=== PATIENT | female | born 1975 | race American Indian/Alaskan Native ===

== ENCOUNTER 2018-03-18 13:00 | Outpatient (CLI) | payer MEDICARE ==
--- NOTE | 2018-03-18 13:54 | Mammography Report ---
Screening mammogram: Prior reduction surgeries bilaterally. Baseline examination. Routine views demonstrates mild fibroglandular distortion throughout both breasts consistent with prior reduction surgery. A couple of lipoid cysts are identified in the right breast. There is a focal area of dense and spiculated asymmetric distortion in the lateral right breast which is most likely superior in position but not as clearly defined on the lateral view. No other significant findings are appreciated. CAD used. Impression: Postsurgical changes. The right breast asymmetry most likely secondary to scar formation. Recommendation: Right breast ultrasound to confirm the absence of a mass associated with lateral deformity. BI-RADS CATEGORY: 0 = Needs additional imaging evaluation ACR BI-RADS MAMMOGRAPHIC CODES: 0 = Needs additional imaging evaluation; 1 = Negative; 2 = Benign; 3 = Probably benign; 4 = Suspicious; 5 = Malignant; 6 = Known biopsy-proven malignancy COMMENT: 1. Dense breast tissue, i.e., adenosis, fibrocystic changes, etc., may obscure an underlying neoplasm. 2. Approximately 10% of cancers are not detected with mammography. 3. A negative mammography report should not delay biopsy if a clinically suspicious mass is present.
== END 2018-03-18 13:01 | disposition home or self-care (01) ==
LOC: MAMMO 13:00
PROVIDERS: ATTEND Obstetrics & Gynecology
DX: Z12.31 Encounter for screening mammogram for malignant neoplasm of breast (principal)
CPT/HCPCS: 77067

== ENCOUNTER 2018-03-31 11:04 | Outpatient (CLI) | payer MEDICARE ==
--- NOTE | 2018-04-01 12:12 | Ultrasound Report ---
Screening mammogram: Prior reduction surgeries bilaterally. Baseline examination. Routine views demonstrates mild fibroglandular distortion throughout both breasts consistent with prior reduction surgery. A couple of lipoid cysts are identified in the right breast. There is a focal area of dense and spiculated asymmetric distortion in the lateral right breast which is most likely superior in position but not as clearly defined on the lateral view. No other significant findings are appreciated. CAD used. Impression: Postsurgical changes. The right breast asymmetry most likely secondary to scar formation. Recommendation: Right breast ultrasound to confirm the absence of a mass associated with lateral deformity. BI-RADS CATEGORY: 0 = Needs additional imaging evaluation ACR BI-RADS MAMMOGRAPHIC CODES: 0 = Needs additional imaging evaluation; 1 = Negative; 2 = Benign; 3 = Probably benign; 4 = Suspicious; 5 = Malignant; 6 = Known biopsy-proven malignancy COMMENT: 1. Dense breast tissue, i.e., adenosis, fibrocystic changes, etc., may obscure an underlying neoplasm. 2. Approximately 10% of cancers are not detected with mammography. 3. A negative mammography report should not delay biopsy if a clinically suspicious mass is present. Addendum #1 Right breast ultrasound: Based on prior screening exam on March 18 imaging of the superior breast demonstrates a circumscribed mass measuring 12 mm in size. There however is shadowing distally and the posterior wall is not as sharply defined as the anterior and lateral taylor. There is some question of debris or other echo density along the inferior wall. There is no internal flow with color imaging. In the 7:00 location there is also a circumscribed somewhat elongated area of hypoechogenicity which is almost completely anechoic and measures 8.6 mm in maximum dimension. There is enhancement of the posterior wall and tissue. Imaging of the axilla demonstrates a benign appearing lymph node measuring 14 mm. Impression: 1. The finding at 12:00 corresponds to the mammographic density. While it may represent a complicated cyst with posterior debris producing the shadowing, a solid mass cannot be excluded based on these findings. 2. Benign cyst at 7:00 Recommendation: Ultrasound guided aspiration of the 12:00 lesion. Biopsy, if this does not aspirate. BI-RADS CATEGORY: 4 = Suspicious ACR BI-RADS MAMMOGRAPHIC CODES: 0 = Needs additional imaging evaluation; 1 = Negative; 2 = Benign; 3 = Probably benign; 4 = Suspicious; 5 = Malignant; 6 = Known biopsy-proven malignancy COMMENT: 1. Dense breast tissue, i.e., adenosis, fibrocystic changes, etc., may obscure an underlying neoplasm. 2. Approximately 10% of cancers are not detected with mammography. 3. A negative mammography report should not delay biopsy if a clinically suspicious mass is present.
== END 2018-03-31 11:05 | disposition home or self-care (01) ==
LOC: US 11:04
PROVIDERS: ATTEND Obstetrics & Gynecology
DX: N64.89 Other specified disorders of breast (principal)

== ENCOUNTER 2018-04-10 08:47 | Outpatient (CLI) | payer MEDICARE ==
--- NOTE | 2018-04-10 10:39 | Mammography Report ---
RIGHT DIGITAL DIAGNOSTIC MAMMOGRAM : 04/10/18 CLINICAL: Immediately status post aspiration of a cyst at 12 o'clock. COMPARISON:03/18/18 FINDINGS: A previously identified oil cyst at 12 o'clock is less prominent and correlates with the aspirated cyst. Several additional oil cysts are identified at 5 o'clock near the skin at a surgical scar. IMPRESSION: Benign fat necrosis at 12 o'clock approximately 6 cm from the nipple and at 5 o'clock approximately 11 cm from the nipple. Fat necrosis is the likely cause for her right breast pain.Recommend clinical followup and routine mammographic screening. BI-RADS CATEGORY: 2 - - Benign COMMENT: Patient follow-up letters are generated by our [employer] application.
--- NOTE | 2018-04-10 11:13 | Ultrasound Report ---
ULTRASOUND ASPIRATION RIGHT BREAST: 04/10/18 CLINICAL: Cyst at 12 o'clock 4 cm from the nipple. COMPARISON: 03/31/18 FINDINGS: The procedure was explained to the patient and informed consent was obtained. Ultrasound demonstrated the previously described oval slightly irregular cyst at 12 o'clock. The skin was cleansed with Betadine and anesthetized with 1% lidocaine. A 20-gauge needle was introduced into the cyst with ultrasound guidance. Less than 1.0cc of clear yellow fluid was removed. The cyst showed complete collapse with aspiration. The patient tolerated the procedure well and there were no apparent complications. A post procedure mammogram showed near-complete resolution of an oil cyst at 12 o'clock. IMPRESSION: Uncomplicated cyst aspiration right breast. The cyst is consistent with a benign oil cyst related to postsurgical fat necrosis.
== END 2018-04-10 08:48 | disposition home or self-care (01) ==
LOC: SPVWC 08:47
PROVIDERS: ATTEND Obstetrics & Gynecology
DX: N60.01 Solitary cyst of right breast (principal); N64.1 Fat necrosis of breast; Z88.6 Allergy status to analgesic agent; Z88.5 Allergy status to narcotic agent

== ENCOUNTER 2019-06-08 09:30 | Outpatient (CLI) | payer MEDICARE ==
--- NOTE | 2019-06-09 08:45 | Mammography Report ---
DIGITAL SCREENING MAMMOGRAM WITH CAD, 06/08/2019 INDICATION: Routine screening mammography. 3 of bilateral reduction mammoplasty. TECHNIQUE: Digital bilateral 2D mammography was obtained in the craniocaudal and mediolateral obliq ue projections. This examination was interpreted with the benefit of Computer-Aided Detection analysi s. COMPARISON: 03/18/2018 FINDINGS: Breast Density: There are scattered areas of fibroglandular density. There is no evidence of dominant mass, suspicious calcifications or architectural distortion in eithe r breast. A loop recorder is identified in the lower inner left breast. IMPRESSION: No mammographic evidence of malignancy. Follow up recommendation: Routine yearly BI-RADS Category 1: Negative. A "normal" or negative report should not discourage follow up or biopsy of a clinically significant f inding. A written summary of these findings will be mailed to the patient. The patient will be entered into a mammography reporting system which will generate a reminder letter for the patient's next appointmen t at the appropriate interval. The [employer] recommends yearly mammograms starting at age 40 and continuing as l josé manuel as a woman is in good health. Breast MRI is recommended for women with an approximate 20-25% or greater lifetime risk of breast cancer, including women with a strong family history of breast or ova ba cancer or who have been treated for Hodgkin's disease. Signer Name: Sarkis Summers MD Signed: 06/09/2019 8:41 AM Workstation Name: [id number]
== END 2019-06-08 09:31 | disposition home or self-care (01) ==
LOC: MAMMO 09:30
PROVIDERS: ATTEND Obstetrics & Gynecology
DX: Z12.31 Encounter for screening mammogram for malignant neoplasm of breast (principal)
CPT/HCPCS: 77067

== ENCOUNTER 2020-09-28 11:28 | Outpatient (CLI) | payer MEDICARE ==
--- NOTE | 2020-09-28 15:18 | Mammography Report ---
DIGITAL SCREENING MAMMOGRAM, 09/28/2020 CLINICAL INFORMATION / INDICATION: Routine screening mammography. SCREENING MAMMOGRAM TECHNIQUE: Digital bilateral 2D mammography was obtained in the craniocaudal and mediolateral obliqu e projections. COMPARISON: Prior mammograms 06/08/2019 and 03/18/2018 FINDINGS: Breast Density: There are scattered areas of fibroglandular density. No dominant mass, suspicious calcifications, or architectural distortion in the left breast. An impla nted cardiac loop recorder is present in the left breast. Redemonstration of postsurgical change in both breasts. There has been interval development of scatte red round calcifications throughout the right breast, most confluent in the 1:00 position. IMPRESSION: 1. Interval development of scattered round calcifications throughout the right breast, most confluent in the 1:00 position. While this most likely reflects evolving changes of fat necrosis, recommend fu rther evaluation with magnification views. Follow up recommendation: Special View: Mag BI-RADS Category 0: Incomplete. Needs additional imaging evaluation and/or prior mammograms for selam villanueva. A "normal" or negative report should not discourage follow up or biopsy of a clinically significant f inding. A written summary of these findings will be mailed to the patient. The patient will be entered into a mammography reporting system which will generate a reminder letter for the patient's next appointmen t at the appropriate interval. The [employer] recommends yearly mammograms starting at age 40 and continuing as l josé manuel as a woman is in good health. Breast MRI is recommended for women with an approximate 20-25% or greater lifetime risk of breast cancer, including women with a strong family history of breast or ova ba cancer or who have been treated for Hodgkin's disease. Signer Name: Haylee Muller MD Signed: 09/28/2020 3:14 PM Workstation Name: [id number]
== END 2020-09-28 11:29 | disposition home or self-care (01) ==
LOC: MAMMO 11:28
PROVIDERS: ATTEND Obstetrics & Gynecology
DX: Z12.31 Encounter for screening mammogram for malignant neoplasm of breast (principal)
CPT/HCPCS: 77067

== ENCOUNTER 2020-10-23 10:57 | Outpatient (CLI) | payer MEDICARE ==
--- NOTE | 2020-10-23 11:56 | Mammography Report ---
DIGITAL DIAGNOSTIC MAMMOGRAM WITH CAD , 10/23/2020 CLINICAL INFORMATION / INDICATION: Abnormal screening mammogram. Screening recall of the right breast for calcifications. TECHNIQUE: Digital right mammographic imaging was performed. Magnification views were obtained. This examination was interpreted with the benefit of Computer-aided Detection analysis. COMPARISON: Screening mammogram, 09/28/2020, 06/08/2019 FINDINGS: Breast Density: There are scattered areas of fibroglandular density. Magnification views of the upper inner right breast demonstrate loosely grouped round coarse calcific ations at the site of previous surgical biopsy. No suspicious microcalcifications are identified. IMPRESSION: No mammographic evidence of malignancy. Right breast calcifications have a benign morphol ogy and are most likely secondary to post surgical change and/or fat necrosis. Follow up recommendation: Routine yearly BI-RADS Category 2: Benign. A "normal" or negative report should not discourage follow up or biopsy of a clinically significant f inding. A written summary of these findings will be mailed to the patient. The patient will be entered into a mammography reporting system which will generate a reminder letter for the patient's next appointmen t at the appropriate interval. According to the [employer], yearly mammograms are recommended starting at age 40 and continuing as long as a woman is in good health. Breast MRI is recommended for women with an shell roximately 20-25% or greater lifetime risk of breast cancer, including women with a strong family his tory of breast or ovarian cancer and women who have been treated for Hodgkin's disease. Signer Name: Lauren Carr MD Signed: 10/23/2020 11:52 AM Workstation Name: [id number]
== END 2020-10-23 10:58 | disposition home or self-care (01) ==
LOC: MAMMO 10:57
PROVIDERS: ATTEND Obstetrics & Gynecology
DX: R92.8 Other abnormal and inconclusive findings on diagnostic imaging of breast (principal)